=== PATIENT | male | born 1935 | race Caucasian/White ===

== ENCOUNTER 2017-12-08 12:11 | Emergency (ER) | payer MEDICARE, OTHER ==
[~2017-12-08] VITALS: Ht 170.2 cm; Wt 68.0 kg
[2017-12-08] MEDS ORDERED: SODI1TAB3 PO (13:00)
[2017-12-08] MEDS ORDERED: CHOL100044 PO (13:00)
[2017-12-08] MEDS ORDERED: ALPR0.255 PO (13:00)
[2017-12-08] MEDS ORDERED: CARB15DR2 EACHEYE (13:00)
[2017-12-08] MEDS ORDERED: ASPI-992 PO (13:00)
[2017-12-08] MEDS ORDERED: TRAM50TA2 PO (13:00)
[2017-12-08] MEDS ORDERED: ATOR40TA PO (13:00)
[2017-12-08] MEDS ORDERED: RANI150T8 PO (13:00)
[2017-12-08] MEDS ORDERED: TAMS-12 PO (13:00)
[2017-12-08] MEDS ORDERED: DULO30CA2 PO (13:00)
[2017-12-08] MEDS ORDERED: AMLO5TAB7 PO (13:00)
[2017-12-08] MEDS ORDERED: ERGO500014 PO (13:00)
[2017-12-08] MEDS ORDERED: MULT-1168 PO (13:00)
[2017-12-08] MEDS ORDERED: IV NS 0.9% 500 ML BAG IV ONE (13:00)
[2017-12-08] MEDS ORDERED: CALC-494 PO (13:00)
[2017-12-08] MEDS ORDERED: FLUT16SP NS (13:00)
[2017-12-08 13:04] LABS: HEMATOCRIT 31 % (39-51); HEMOGLOBIN 10.1 g/dL (13.5-17.5); MEAN CORPUSCULAR HGB CONC 33 g/dl (31.0-36.0); MEAN CORPUSCULAR VOLUME 76 fL (80-96); PLATELET COUNT (AUTO) 227 /CMM (150-450); RDW COEFFICIENT OF VARIATION 19.3 (11.5-15.0); RED BLOOD CELL COUNT(AUTO) 4.04 MIL/uL (4.5-6.0); WHITE BLOOD COUNT (AUTO) 9.3 K/uL (4.3-11.0)
[2017-12-08 13:11] LABS: CALCIUM, SERUM 8.4 mg/dL (8.5-10.1); CARBON DIOXIDE 28 mmol/L (21-32); CHLORIDE 94 mmol/L (98-107); CREATININE 0.7 mg/dL (0.6-1.3); GLUCOSE 95 mg/dL (74-106); SODIUM SERUM 127 mmol/L (136-145); UREA NITROGEN, BLOOD 24 mg/dL (7-18)
[2017-12-08 13:13] LABS: INR 1.24 (0.85-1.15)
[2017-12-08 13:16] LABS: TROPONIN I < 0.017 ng/mL (0.00-0.056)
[2017-12-08 13:54] LABS: EOSINOPHILS % (MANUAL) 4 % (0-4); LYMPHOCYTES % (MANUAL) 1 % (16-48); MONOCYTES % (MANUAL) 4 % (0-11.0); NEUTROPHILS % (MANUAL) 91 (42-76)
--- NOTE | 2017-12-08 13:59 | NUR ---
Patient discharged to home in stable condition. Written and verbal after care instructions given. Patient verbalizes understanding of instruction.
[2017-12-08 14:00] VITALS: BP 110/66
[2017-12-08 15:09] LABS: ALANINE AMINOTRANSFERASE 38 U/L (12-78); ALKALINE PHOSPHATASE 104 U/L (46-116); ASPARTATE AMINOTRANSFERASE 48 U/L (15-37); BILIRUBIN,DIRECT 0.2 mg/dL (0.0-0.2); BILIRUBIN,TOTAL 0.6 mg/dL (0.2-1.0); TOTAL PROTEIN, SERUM 6.6 g/dL (6.4-8.2)
== END 2017-12-08 14:00 ==
LOC: ER 12:13
DX: E87.1 Hypo-osmolality and hyponatremia (principal); F03.90 Unspecified dementia, unspecified severity, without behavioral disturbance, psychotic disturbance, mood disturbance, and anxiety; F32.9 Major depressive disorder, single episode, unspecified; I10 Essential (primary) hypertension; Z79.82 Long term (current) use of aspirin
CPT/HCPCS: 36415; 80048; 80076; 84484; 85025; 85730; 87081; 93005; 99285; A4606; J7040; Z7610

== ENCOUNTER 2018-01-02 13:27 | Inpatient (IN) | payer MEDICARE, OTHER ==
[~2018-01-02] VITALS: Ht 167.6 cm; Wt 61.7 kg
[2018-01-02] VITALS (7 sets, daily range): BP systolic 98–139; BP diastolic 58–95
[~2018-01-02 13:27] MED LIST: ALPR0.255 PO; AMLO5TAB7 PO; ASPI-992 PO; ATOR40TA PO; CALC-494 PO; CARB15DR2 EACHEYE; CHOL100044 PO; DULO30CA2 PO; ERGO500014 PO; FLUT16SP NS; MULT-1168 PO; RANI150T8 PO; SODI1TAB3 PO; TAMS-12 PO; TRAM50TA2 PO
--- NOTE | 2018-01-02 13:40 | NUR ---
PT PRESENTS TO ER C/O BRIGHT RED RECTAL BLEEDING, FACILITY STAFF DOES NOT KNOW WHAT DAY IT STARTED, AND FREQUENT NOSEBLEEDS X3 DAYS. NO ACTIVE NOSEBLEED CURRENTLY. ORAL MUCOSA MOIST AND PINK, NO BLEEDING. SKIN WARM DRY. RESP EVEN UNLABORED. NOTED STRONG ODOR OF BLOOD UPON ARRIVAL, AND FOUND BRIGHT RED BLOOD ON PANTS. DENIES PAIN.
[2018-01-02 14:18] LABS: BASOPHILS # (AUTO) 0.1 /CMM (0.0-0.2); BASOPHILS % (AUTO) 0.5 % (0.0-2.0); EOSINOPHILS % (AUTO) 0.1 % (0.0-6.0); LYMPHOCYTES # (AUTO) 1.2 /CMM (0.8-4.8); LYMPHOCYTES % (AUTO) 11.4 % (20.0-44.0); MEAN CORPUSCULAR HGB CONC 34 g/dl (31.0-36.0); MEAN CORPUSCULAR VOLUME 76 fL (80-96); MONOCYTES # (AUTO) 0.7 /CMM (0.1-1.30); MONOCYTES % (AUTO) 7.2 % (2.0-12.0); NEUTROPHILS # (AUTO) 8.1 /CMM (1.8-8.9); NEUTROPHILS % (AUTO) 80.8 % (43.0-81.0); PLATELET COUNT (AUTO) 230 /CMM (150-450); RDW COEFFICIENT OF VARIATION 18.8 (11.5-15.0); RED BLOOD CELL COUNT(AUTO) 2.61 MIL/uL (4.5-6.0); WHITE BLOOD COUNT (AUTO) 10.1 K/uL (4.3-11.0)
[2018-01-02 14:28] LABS: HEMATOCRIT 20 % (39-51); HEMOGLOBIN 6.8 g/dL (13.5-17.5)
[2018-01-02 14:29] LABS: CARBON DIOXIDE 23 mmol/L (21-32); CHLORIDE 102 mmol/L (98-107); CREATININE 1.1 mg/dL (0.6-1.3); GLUCOSE 125 mg/dL (74-106); SODIUM SERUM 134 mmol/L (136-145); UREA NITROGEN, BLOOD 45 mg/dL (7-18)
[2018-01-02 14:33] LABS: INR 1.18 (0.85-1.15)
[2018-01-02 14:35] LABS: ALANINE AMINOTRANSFERASE 17 U/L (12-78); ALBUMIN 2.6 g/dL (3.4-5.0); ALKALINE PHOSPHATASE 69 U/L (46-116); ASPARTATE AMINOTRANSFERASE 21 U/L (15-37); BILIRUBIN,DIRECT 0.1 mg/dL (0.0-0.2); BILIRUBIN,TOTAL 0.4 mg/dL (0.2-1.0); TOTAL PROTEIN, SERUM 5.9 g/dL (6.4-8.2)
[2018-01-02] MEDS ORDERED: HALOPERIDOL 1 MG TABLET ONE (14:48)
--- NOTE | 2018-01-02 14:52 | NUR ---
PT BECOMING INCREASINGLY AGITATED AND SELF-REPORTS HAVING ANXIETY. PT AND FAMILY ASKING FOR ANTI-ANXIETY MEDICATION. DR GUEVARA NOTIFIED; ORDER FOR HALDOL PO RECEIVED AND ADMINISTERED
[2018-01-02] MEDS ORDERED: HALOPERIDOL 1 MG TABLET PO ONE (15:00)
[2018-01-02] MEDS ORDERED: IOHEXOL-350 100 ML VIAL IV ONE (15:23)
[2018-01-02] MEDS ORDERED: IV NS 0.9% 500 ML IV ONE ×2 (15:23→15:30)
[2018-01-02] MEDS ORDERED: CT SWABBABLE VALVE TRANS SET 1 EA INFUS.SET MC ONE (15:23)
[2018-01-02 15:30] LABS: LYMPHOCYTES % (MANUAL) 14 % (16-48); MONOCYTES % (MANUAL) 4 % (0-11.0); NEUTROPHILS % (MANUAL) 82 (42-76)
[2018-01-02] MEDS ORDERED: MIDAZOLAM HCL 2 MG/2ML VIAL ONE (15:41)
--- NOTE | 2018-01-02 15:58 | NUR ---
CT TECHS WERE UNABLE TO OBTAIN CT D/T MOVEMENT DESPITE ATTEMPTS AT EDUCATION. DR GUEVARA NOTIFIED. I ACCOMPANIED PT TO CT WITH PT MONITORED AND ADMNIISTERED 2MG VERSED PER ORDER FOR SEDATION. PT TOLERATED WELL AND RETURNED IN STABLE CONDITION TO BED 10
[2018-01-02] MEDS ORDERED: MIDAZOLAM HCL 2 MG/2ML VIAL IV ONE (16:00)
--- NOTE | 2018-01-02 16:58 | NUR ---
REPORT GIVEN TO DAVID LAM FOR ADMISSION TO 109
--- NOTE | 2018-01-02 17:17 | NUR ---
CALLED AKIL [phone] WILL BE READ SOON
--- NOTE | 2018-01-02 17:20 | NUR ---
1 UNIT PRBC INITIATED AT THIS TIME. VSS. SIGHED CONSENT IN CHART. NAD NOTED. WITH FAMILY AND CAREGIVER AT BEDSIDE. 2 RN CHECK VERIFIED WITH TEJAL LAM.
--- NOTE | 2018-01-02 17:53 | NUR ---
VSS. TOLERATING PRBC. REPORTS MILD NAUSEA BUT NO VOMITING. WILL ENDORSE TO ADMITTING RN. TRANSPORTED TO [facility] IN GUARDED CONDITION VIA ACLS PROTOCOL
[2018-01-02] MEDS ORDERED: MAGNESIUM HYDROXIDE 30 ML UDC PO PRN (18:00)
[2018-01-02] MEDS ORDERED: PANTOPRAZOLE 40 MG VIAL IV SCH (18:00)
[2018-01-02] MEDS ORDERED: ACETAMINOPHEN 325 MG TABLET PO PRN (18:00)
[2018-01-02] MEDS ORDERED: Z GUARD REMEDY 2 OZ OINT TP PRN (18:00)
[2018-01-02] MEDS ORDERED: MAG HYDROX/AL HYDROX/SIMETH 30 ML UDC PO PRN (18:00)
[2018-01-02] MEDS: ONDANSETRON HCL/PF 4 MG/2 ML VIAL IVP PRN (18:16)
[2018-01-02] MEDS ORDERED: PANTOPRAZOLE 40 MG VIAL IV ONE (18:30)
[2018-01-02] MEDS: LORAZEPAM INJ 2 MG/ML VIAL IV PRN (18:43)
--- NOTE | 2018-01-02 19:10 | NUR ---
RN [facility] NOTE RECEIVED PATIENT RESTING IN BED AOX1-2, EASILY AROUSABLE, 1 UNIT PRBC TRANSFUSING, NO S/SX OF RESPIRATORY DISTRESS OR REACTION. PATIENT IS ON RA, NO CARDIAC DISTRESS NOTED, NO NAUSEA OR VOMITING NOTED, VSS, SAFETY MAINTAINED AT ALL TIMES, BED IN LOW LOCKED POSITION, CALL LIGHT WITHIN REACH, WILL CONTINUE TO MONITOR FOR ANY CHANGES IN CONDITION.
--- NOTE | 2018-01-02 20:20 | NUR ---
RN [facility] NOTE PATIENT COMPLETED TRANSFUSION, TOLERATED WELL VSS, 126/73, HR 93, 97% RA, AOX1, ABLE TO COMMUNICATE NEEDS, WILL CONTINUE TO MONITOR FOR ANY CHANGES IN CONDITION.
[2018-01-02] MEDS: IV NS 0.9% 1,000 ML IV PRN (20:50)
[2018-01-02] MEDS ORDERED: DEXTROSE 50%-WATER 50 ML DISP.SYRIN IV PRN (21:30)
[2018-01-02] MEDS ORDERED: INSULIN REGULAR, HUMAN 100 UNIT/ML 3 ML VIAL SQ PRN (21:30)
[2018-01-02] MEDS: BLOOD SUGAR DIAGNOSTIC 1 EACH STRIP IN SCH (22:26)
[2018-01-03] VITALS (14 sets, daily range): BP systolic 109–146; BP diastolic 67–89
[2018-01-03 00:29] LABS: HEMOGLOBIN 6.8 g/dL (13.5-17.5)
--- NOTE | 2018-01-03 00:58 | NUR ---
0005 patient with bloody stool. Hgb on admission was 6.8, was transfused 1 unit PRBC. STAT H/H done 27 Bing Richards from lab called for hemoglobin 6.8 ; Dr. Davis Fox in the unit; made aware of the results and bloody stool; also informed patient confused and gets out of bed without calling; transferred closer to the station; with verbal orders noted and carried out
[2018-01-03] MEDS: ONDANSETRON HCL/PF 4 MG/2 ML VIAL IVP PRN ×2 (01:01→20:33)
[2018-01-03] MEDS: FUROSEMIDE 20 MG/2 ML VIAL IV PRN ×2 (04:22→07:08)
[2018-01-03] MEDS: LORAZEPAM INJ 2 MG/ML VIAL IV PRN ×3 (04:22→17:42)
--- NOTE | 2018-01-03 07:00 | NUR ---
RN NOTES RECEIVED PT ON BED, A/Ox1, ON RA , RESPIRATION EVEN AND UNLABORED, NO SOB NOTED, ON TELE SR WITH BBB, HR IN 90'S , PT IS NPO , L FA IV SITE G 18 SITE CDI, WITH NS AT 75CC/HR RUNNING , SR UP x3, CALL LIGHT WITHIN EASY REACH, BED LOCKED AND IN LOWEST POSITION , CONTINUE TO MONITOR .
[2018-01-03] MEDS: BLOOD SUGAR DIAGNOSTIC 1 EACH STRIP IN SCH ×4 (07:30→21:11)
[2018-01-03 08:25] LABS: BASOPHILS % (AUTO) 0.2 % (0.0-2.0); EOSINOPHILS % (AUTO) 0.1 % (0.0-6.0); HEMATOCRIT 30 % (39-51); HEMOGLOBIN 9.9 g/dL (13.5-17.5); LYMPHOCYTES # (AUTO) 1.5 /CMM (0.8-4.8); LYMPHOCYTES % (AUTO) 12.2 % (20.0-44.0); MEAN CORPUSCULAR HGB CONC 33 g/dl (31.0-36.0); MEAN CORPUSCULAR VOLUME 79 fL (80-96); MONOCYTES # (AUTO) 1.2 /CMM (0.1-1.30); MONOCYTES % (AUTO) 9.1 % (2.0-12.0); NEUTROPHILS # (AUTO) 9.9 /CMM (1.8-8.9); NEUTROPHILS % (AUTO) 78.4 % (43.0-81.0); PLATELET COUNT (AUTO) 202 /CMM (150-450); RDW COEFFICIENT OF VARIATION 18.6 (11.5-15.0); RED BLOOD CELL COUNT(AUTO) 3.79 MIL/uL (4.5-6.0); WHITE BLOOD COUNT (AUTO) 12.6 K/uL (4.3-11.0)
[2018-01-03 08:32] LABS: CALCIUM, SERUM 8.4 mg/dL (8.5-10.1); CARBON DIOXIDE 25 mmol/L (21-32); CHLORIDE 103 mmol/L (98-107); CREATININE 0.9 mg/dL (0.6-1.3); GLUCOSE 138 mg/dL (74-106); PHOSPHORUS 3.9 mg/dL (2.5-4.9); POTASSIUM 3.6 mmol/L (3.5-5.1); SODIUM SERUM 135 mmol/L (136-145); UREA NITROGEN, BLOOD 37 mg/dL (7-18)
[2018-01-03 08:33] LABS: INR 1.1 (0.87-1.13)
[2018-01-03 08:43] LABS: CHOLESTEROL 146 mg/dL (<200); HDL CHOLESTEROL 43 mg/dL (40-60); LDL 88 mg/dL (0-99); THYROID STIMULATING HORMONE 1.624 uIU/mL (0.358-3.74); TRIGLYCERIDES 86 mg/dL (30-150)
[2018-01-03] MEDS: PANTOPRAZOLE 40 MG VIAL IV SCH ×2 (08:54→17:08)
[2018-01-03 09:12] LABS: IRON, SERUM 80 ug/dl (50-175); TOTAL IRON BINDING CAPACITY 278 ug/dl (250-450)
--- NOTE | 2018-01-03 15:45 | NUR ---
RN NOTES PT TO OR FOR EGD AT THIS TIME ,
--- NOTE | 2018-01-03 17:00 | NUR ---
RN NOTES PT BACK FROM OR ,S/P EGD, VSS STABLE , CONTINUE TO MONITOR
[2018-01-03] MEDS: SUCRALFATE 1 G/10 ML UDC PO SCH ×2 (17:10→21:11)
[2018-01-03] MEDS: IV NS 0.9% 1,000 ML IV PRN (18:03)
--- NOTE | 2018-01-03 18:53 | NUR ---
RN NOTES PT ALERT STILL CONFUSED AND WANTS TO GET OUT OF BED, SITTER AT THE BEDSIDE FOR SAFETY PRECAUTION , R UPPER ARM MIDLINE CDI, 3 MODERATE AMOUNT OF BLOODY STOOL NOTED ON THIS SHIFT , VSS STABLE, SR UP x3, CALL LIGHT WITHIN EASY REACH, WILL ENDOSE TO RADIAGRAPH OPERATOR NURSE FOR TONIO
--- NOTE | 2018-01-03 19:20 | NUR ---
RN [facility] NOTE RECEIVED PATIENT RESTING IN BED AOX1-2, SITTER AT BEDSIDE DUE TO RESTLESSNESS, ON TELE SR 90, NO S/SX OF RESPIRATORY OR CARDIAC DISTRESS. F/C DRAINING TO GRAVITY, DIAPER IN PLACE, PATIENT CONTINUES TO HAVE LOOSE BLOODY STOOL. LEFT THUMB AMPUTATION. R WRIST #24 IV PATENT, SITE CDI, SL, JUAQUIN MIDLINE PATENT FLUSHING WELL WITH NS AT 75 ML/HR. SKIN KEPT CLEAN AND DRY. SAFETY MAINTAINED AT ALL TIMES, BED IN LOW LOCKED POSITION, CALL LIGHT WITHIN REACH, WILL CONTINUE TO MONITOR FOR ANY CHANGES IN CONDITION.
[2018-01-03] MEDS: ZOLPIDEM TARTRATE 5 MG TABLET PO PRN (21:11)
[2018-01-04] VITALS: BP 116/70
[2018-01-04] MEDS: LORAZEPAM INJ 2 MG/ML VIAL IV PRN ×2 (03:11→11:15)
[2018-01-04 04:00] VITALS: BP 147/87
--- NOTE | 2018-01-04 07:00 | NUR ---
RN NOTES RECEIVED PT ON BED, A/Ox1, CONFUSED , SITTER AT THE BEDSIDE FOR SAFETY PRECAUTION , ON RA , RESPIRATION EVEN AND UNLABORED, NO SOB NOTED, ON TELE SR HR IN 70'S , HART DRINING TO GRAVITY WITH YELLOW CLEAR URINE, R UPPER ARM MIDLINE CDI, WITH IV NS AT 75CC/HR RUNNING , R WRIST IV SITE G 24 CDI, SR UP x3, CALL LIGHT WITHIN EASY REACH, BED LOCKED AND IN LOWEST POSITION , CONTINUE TO MONITOR .
[2018-01-04] MEDS: IV NS 0.9% 1,000 ML IV PRN (07:13)
[2018-01-04] MEDS: BLOOD SUGAR DIAGNOSTIC 1 EACH STRIP IN SCH (07:30)
[2018-01-04] MEDS: SUCRALFATE 1 G/10 ML UDC PO SCH ×4 (07:51→21:50)
[2018-01-04 08:00] VITALS: BP 125/72
[2018-01-04] MEDS: PANTOPRAZOLE 40 MG VIAL IV SCH ×2 (08:14→16:44)
[2018-01-04 12:00] VITALS: BP 118/58
[2018-01-04 13:11] LABS: BASOPHILS % (AUTO) 0.3 % (0.0-2.0); EOSINOPHILS % (AUTO) 0.6 % (0.0-6.0); HEMATOCRIT 25 % (39-51); HEMOGLOBIN 8.3 g/dL (13.5-17.5); LYMPHOCYTES # (AUTO) 1.2 /CMM (0.8-4.8); LYMPHOCYTES % (AUTO) 11.4 % (20.0-44.0); MEAN CORPUSCULAR HGB CONC 33 g/dl (31.0-36.0); MEAN CORPUSCULAR VOLUME 79 fL (80-96); MONOCYTES # (AUTO) 1.1 /CMM (0.1-1.30); MONOCYTES % (AUTO) 10.7 % (2.0-12.0); PLATELET COUNT (AUTO) 155 /CMM (150-450); RDW COEFFICIENT OF VARIATION 18.8 (11.5-15.0); RED BLOOD CELL COUNT(AUTO) 3.15 MIL/uL (4.5-6.0); WHITE BLOOD COUNT (AUTO) 10.4 K/uL (4.3-11.0)
[2018-01-04 13:29] LABS: CARBON DIOXIDE 26 mmol/L (21-32); CHLORIDE 105 mmol/L (98-107); CREATININE 0.6 mg/dL (0.6-1.3); GLUCOSE 108 mg/dL (74-106); POTASSIUM 2.9 mmol/L (3.5-5.1); SODIUM SERUM 137 mmol/L (136-145); UREA NITROGEN, BLOOD 19 mg/dL (7-18)
--- NOTE | 2018-01-04 13:33 | NUR ---
RN NOTES NICHOLAS MARTINEZ NP NOTIFED REGARDING K=2.9.
[2018-01-04] MEDS: POTASSIUM CL. PREMIX PERIPHER. 50 ML IV SCH ×4 (13:53→17:26)
[2018-01-04] MEDS: HYDROCODONE/APAP 5/325MG 1 EACH TABLET PO PRN (15:57)
[2018-01-04 16:00] VITALS: BP 144/75
--- NOTE | 2018-01-04 18:00 | NUR ---
RN NOTES PT REMAINS CONFUSED, WANTS TO GET OUT OF THE BED, SITTER AT THE BEDSIDE FOR SAFETY.NS AT 75CC/HR RUNNING VIA R UPPER ARM MIDLINE , HART DRAINING TO GRAVITY , SR UP x3, CALL LIGHT WITHIN EASY REACH, WILL ENDOSE TO COMMUNICATION TECHNICIAN NURSE FOR TONIO .
--- NOTE | 2018-01-04 19:26 | NUR ---
RN [facility] NOTE RECEIVED PATIENT RESTING IN BED AOX1-2, SITTER AT BEDSIDE DUE TO RESTLESSNESS, ON TELE SR 80, NO S/SX OF RESPIRATORY OR CARDIAC DISTRESS. F/C DRAINING TO GRAVITY, DIAPER IN PLACE. LEFT THUMB AMPUTATION. R WRIST #24 IV PATENT, SITE CDI, SL, JUAQUIN MIDLINE PATENT FLUSHING WELL WITH NS AT 75 ML/HR. SKIN KEPT CLEAN AND DRY. SAFETY MAINTAINED AT ALL TIMES, BED IN LOW LOCKED POSITION, CALL LIGHT WITHIN REACH, WILL CONTINUE TO MONITOR FOR ANY CHANGES IN CONDITION.
[2018-01-04 20:00] VITALS: BP 129/72
[2018-01-04] MEDS ORDERED: DEXTROSE 50%-WATER 50 ML DISP.SYRIN IV PRN (22:00)
[2018-01-04] MEDS ORDERED: INSULIN REGULAR, HUMAN 100 UNIT/ML 3 ML VIAL SQ PRN (22:00)
[2018-01-04] MEDS ORDERED: BLOOD SUGAR DIAGNOSTIC 1 EACH STRIP IN SCH (22:00)
[2018-01-05] VITALS (7 sets, daily range): BP systolic 110–158; BP diastolic 67–89
[2018-01-05] MEDS: IV NS 0.9% 1,000 ML IV PRN ×2 (00:41→14:35)
[2018-01-05] MEDS: HYDROCODONE/APAP 5/325MG 1 EACH TABLET PO PRN (01:00)
[2018-01-05] MEDS: LORAZEPAM INJ 2 MG/ML VIAL IV PRN ×3 (02:06→23:04)
--- NOTE | 2018-01-05 06:41 | NUR ---
RN [facility] CLOSING NOTE ENDORSED PT SLEEPING IN BED AOX1-2, SITTER AT BEDSIDE DUE TO RESTLESSNESS, ON TELE SR 80, NO S/SX OF RESPIRATORY OR CARDIAC DISTRESS. F/C DRAINING TO GRAVITY, DIAPER IN PLACE. LEFT THUMB AMPUTATION. R WRIST #24 IV PATENT, SITE CDI, SL, JUAQUIN MIDLINE PATENT FLUSHING WELL WITH NS AT 75 ML/HR. SKIN KEPT CLEAN AND DRY. SAFETY MAINTAINED AT ALL TIMES, BED IN LOW LOCKED POSITION, CALL LIGHT WITHIN REACH, WILL CONTINUE TO MONITOR FOR ANY CHANGES IN CONDITION.
[2018-01-05 06:44] LABS: CALCIUM, SERUM 7.7 mg/dL (8.5-10.1); CARBON DIOXIDE 25 mmol/L (21-32); CHLORIDE 100 mmol/L (98-107); CREATININE 0.7 mg/dL (0.6-1.3); GLUCOSE 94 mg/dL (74-106); POTASSIUM 3.1 mmol/L (3.5-5.1); SODIUM SERUM 134 mmol/L (136-145); UREA NITROGEN, BLOOD 16 mg/dL (7-18)
--- NOTE | 2018-01-05 08:00 | NUR ---
TD/RN AM SHIFT INITIAL NOTES RECEIVED PT AWAKE SITTING IN BED WITH SITTER AT BEDSIDE. NO ACUTE CHANGE OF CONDITION NOTED. PT A/O X 1, CONFUSED, ON ROOM AIR, SATURATING @ 95%, LUNG SOUND CLEAR. ON TELE WITH SINUS RHYTHM, HR 84. WITH ON GOING IV INFUSION OF NS @ 75CC/HR, IV SITES PATENT WITH NO S/S OF INFECTION. HART CATHETER INTACT, WITH CLEAR YELLOW URINE OUTPUT. PT IS COMFORTABLE AT THIS TIME. SCHEDULED AM MEDS TO BE GIVEN. CL WITHIN REACHED AND SAFETY MAINTAINED.
[2018-01-05] MEDS: SUCRALFATE 1 G/10 ML UDC PO SCH ×5 (08:32→22:59)
[2018-01-05] MEDS: PANTOPRAZOLE 40 MG VIAL IV SCH ×2 (08:32→17:51)
--- NOTE | 2018-01-05 10:56 | NUR ---
TD/RN SPEECH THERAPIST PT SEEN & EXAMINED BY SPEECH THERAPIST. D/T POOR APPETITE AND CONFUSION RECOMMENDS SUPPLEMENT DRINK WITH MEALS. NOTED, WILL MAKE PRIMARY MD AWARE. MONITORING.
[2018-01-05] MEDS: POTASSIUM CHLORIDE 20 MEQ TAB.PRT.SR PO SCH ×2 (11:53→13:04)
[2018-01-05] MEDS: ENSURE ENLIVE 237 ML LIQUID (VANILLA) PO SCH ×2 (12:07→17:50)
--- NOTE | 2018-01-05 12:09 | NUR ---
TD/RN NOON ROUNDS SITTER AT BEDSIDE. PT VERY COMBATIVE, KICKING AND YELLING. PRN ATIVAN GIVEN FOR ANXIETY. MONITORING.
--- NOTE | 2018-01-05 14:25 | NUR ---
ICU/RN ROUNDS - MICHELLE,. CERAMICS TEACHER UPDATED PT'S CONDITION. NOTIFIED CERAMICS TEACHER THAT PT IS VERY COMBATIVE AND RESTLESS, GAVE ATIVAN BUT PT DID NOT CALM DOWN. NO NEW ORDERS RECEIVED AT THIS TIME. MONITORING CONTINUED.
[2018-01-05] MEDS: HALOPERIDOL LACTATE INJ 5 MG/ML VIAL IM PRN ×2 (14:35→20:11)
[2018-01-05 15:00] LABS: BASOPHILS % (AUTO) 0.3 % (0.0-2.0); EOSINOPHILS % (AUTO) 0.6 % (0.0-6.0); HEMATOCRIT 29 % (39-51); HEMOGLOBIN 9.9 g/dL (13.5-17.5); LYMPHOCYTES % (AUTO) 13.9 % (20.0-44.0); MEAN CORPUSCULAR HGB CONC 34 g/dl (31.0-36.0); MEAN CORPUSCULAR VOLUME 80 fL (80-96); MONOCYTES # (AUTO) 1.3 /CMM (0.1-1.30); MONOCYTES % (AUTO) 9.4 % (2.0-12.0); NEUTROPHILS # (AUTO) 10.6 /CMM (1.8-8.9); NEUTROPHILS % (AUTO) 75.8 % (43.0-81.0); PLATELET COUNT (AUTO) 213 /CMM (150-450); RDW COEFFICIENT OF VARIATION 18.5 (11.5-15.0); RED BLOOD CELL COUNT(AUTO) 3.67 MIL/uL (4.5-6.0); WHITE BLOOD COUNT (AUTO) 14.1 K/uL (4.3-11.0)
[2018-01-05 16:10] LABS: INR 1.14 (0.87-1.13)
[2018-01-05] MEDS: CEFTRIAXONE 1 G in IV NS 0.9% 50 ML IV SCH (17:49)
[2018-01-05 19:00] LABS: APPEARANCE,URINE SL CLOUDY (CLEAR); BILIRUBIN,URINE NEGATIVE (NEGATIVE); BLOOD, URINE 3+ Ery/uL (NEGATIVE); COLOR,URINE YELLOW (YELLOW); KETONES,URINE 1+ (NEGATIVE); LEUKOCYTE ESTERASE ,URINE TRACE (NEGATIVE); NITRITE, URINE NEGATIVE (NEGATIVE); PH,URINE 6.5 (5.0-8.0); PROTEIN,URINE 3+ mg/dl (NEGATIVE); UGLUCOSE NEGATIVE (NEGATIVE); UROBILINOGEN,URINE 0.2 EU/dL (0.2)
[2018-01-05 19:20] LABS: BACTERIA,URINE Few /HPF (None Seen); RBC,URINE TOO NUMEROUS TO COUN /HPF (0-2); SQUAMOUS EPITHELIAL CELL,UR Few /HPF (None Seen)
--- NOTE | 2018-01-05 19:40 | NUR ---
RN INITIAL NOTES: RECEIVED REPORT FROM ELMER LAM, PT IN BED, AWAKE CONFUSED TRYING TO GET OUT BED, 1:1 SITTER AT BED SIDE, IV ACCESS COVERED WITH KERLIX FOR PROTECTION, PT ALSO HAS JUAQUIN MIDLINE PATENT AND FLUSHING WELL, INFUSING WITH NS AT 75ML/HR. PT ON SINUS TACHYCARDIA HR 111. VS TAKEN AND RECORDED. SAFETY PRECAUTIONS FOR FALL INITIATE, CALL LIGHT IN REACH, WILL CONTINUE MONITORING PT
--- NOTE | 2018-01-05 19:41 | NUR ---
TELE1/RN AM SHIFT END NOTES ALL NEEDS MET. NO ACUTE CHANGE OF CONDITION NOTED DURING THE SHIFT, SITTER AT BEDSIDE. PT ENDORSED TO PM NURSE TO CONTINUE CARE. CL WITHIN REACHED AND SAFETY MAINTAINED.
--- NOTE | 2018-01-05 20:00 | NUR ---
RN NOTES: NOTED PT'S BILATERAL WRIST, FOREARM WITH BRUISES, REDNESS UNKNOWN ETIOLOGY SINCE THERE'S NO PHOTOS TAKEN IN THE CHART, BILATERAL RADIAL PULSES PATENT AND PALPABLE, PT ABLE TO MOVE AND WIGGLE ARMS, TOOK PICTURES AND ATTACHED TO CHART
--- NOTE | 2018-01-05 20:12 | NUR ---
PRN HALDOL: PT COMBATIVE, AGGRESSIVE TRYING TO HIT STAFF, VS TAKEN AND RECORDED, PT ON TELE MONITORING SINUS TACH HR 111, BP 147/89 HR 100 RR20 SPO2 98% ON RA, PRN HALDOL 0.2ML IM ADMINISTERED AT THIS TIME.
--- NOTE | 2018-01-05 23:06 | NUR ---
PRN ATIVAN: PT IS AGITATED, AGGRESSIVE AND COMBATIVE AGAIN, PRN ATIVAN 0.5ML ADMINISTERED AT THIS TIME, VS TAKEN AND RECORDED,
[2018-01-05] MEDS: ZOLPIDEM TARTRATE 5 MG TABLET PO PRN (23:40)
--- NOTE | 2018-01-05 23:42 | NUR ---
PRN ATIVAN: CHECKED PT'S VS, PER CLINICAL ASSESSMENT/NURSING JUDGMENT PT NEEDS MEDICATION TO CALM HIM DOWN, HALDOL IM ADMINISTERED, ATIVAN IV GIVEN, BUT STILL STRONG, AGGRESSIVE, PT KEPT YELLING, SHOUTING SCREAMING THAT HE CANT SLEEP BECAUSE HE WANTS HIS OWN HOME BED, PT IS CONFUSED, POSSIBLY THIS PT NEEDS ENOUGH REST AND SLEEP TO AT LEAST HELP HIM BECOME BETTER, NEEDS TO ENCOURAGE PT TO EAT TO INCREASE PO INTAKE, NEEDS TO BEEN BY PSYCHIATRIST POSSIBLE DEPRESSION/PSYCHOSIS?
[2018-01-06] VITALS (7 sets, daily range): BP systolic 118–149; BP diastolic 72–98
--- NOTE | 2018-01-06 | NUR ---
RN NOTES: CONTACTED DR SPENCE REGARDING PT'S BEHAVIOR, DESPITE GIVING ALL PRN MEDS TO HELP CALM THE PT DOWN, PT STILL AGGRESSIVE, COMBATIVE, TRIED HITTING STAFF, SPITTING, TRYING TO REMOVE IV ACCESS AND GET OUT OF BED DESPITE HAVING SITTER, PT REALLY STRONG, DIFFICULT TO CONTROL. PER MD PLACED PT ON BILATERAL SOFT WRIST RESTRAINT, OKAY TO STILL HAVE THE SITTER. RELAYED TO LANDSCAPE MANAGEMENT TECHNICIAN TARIQ. RESTRAINT INITIATED, RESTRAINT PROTOCOL PERFORMED
--- NOTE | 2018-01-06 04:05 | NUR ---
RN NOTES: PT SLEEPING AT THIS TIME, RESPIRATION EVEN AND UNLABORED, BILATERAL SOFT WRIST RESTRAINT RELEASED AT THIS TIME,WILL CONTINUE TO MONITOR FOR THE NEED FOR USE OF RESTRAINT
[2018-01-06] MEDS: IV NS 0.9% 1,000 ML IV PRN ×2 (04:06→17:09)
--- NOTE | 2018-01-06 06:41 | NUR ---
RN NOTES: PERFORMED BLADDER SCAN, RESULT SHOWS 121ML OF URINE. NO ABDOMINAL DISTENTION NOTED, PT VOIDED USING DIAPER, WILL CONTINUE MONITORING
--- NOTE | 2018-01-06 06:59 | NUR ---
RN CLOSING NOTES: PT IN BED, REMAINS CONFUSED, BILATERAL SOFT WRIST RESTRAINT REMAINS IN PLACED, RADIAL PULSES PALPABLE, INTACT, PT ABLE TO MOVE AND WIGGLE ARMS, NO S/S OF IMPEDIMENT IN CIRCULATION NOTED. VS REMAINS STABLE, REMAINS SINUS TACHY HR 106. FOR PSYCHE CONSULT TODAY, SAFETY PRECAUTIONS FOR FALL REMAINS ENGAGED, CALL LIGHT IN REACH, WILL ENDORSE TO DAY RN FOR TONIO.
[2018-01-06 07:15] LABS: CALCIUM, SERUM 8.4 mg/dL (8.5-10.1); CARBON DIOXIDE 20 mmol/L (21-32); CHLORIDE 99 mmol/L (98-107); CREATININE 0.8 mg/dL (0.6-1.3); GLUCOSE 118 mg/dL (74-106); POTASSIUM 3.1 mmol/L (3.5-5.1); SODIUM SERUM 133 mmol/L (136-145); UREA NITROGEN, BLOOD 12 mg/dL (7-18)
[2018-01-06] MEDS: SUCRALFATE 1 G/10 ML UDC PO SCH ×4 (07:30→21:32)
[2018-01-06] MEDS: ENSURE ENLIVE 237 ML LIQUID (VANILLA) PO SCH ×3 (08:00→17:45)
[2018-01-06] MEDS: PANTOPRAZOLE 40 MG VIAL IV SCH ×2 (09:29→17:20)
[2018-01-06] MEDS: LORAZEPAM INJ 2 MG/ML VIAL IV PRN (10:38)
[2018-01-06] MEDS: HALOPERIDOL LACTATE INJ 5 MG/ML VIAL IM PRN (10:39)
[2018-01-06] MEDS: POTASSIUM CHLORIDE 20 MEQ TAB.PRT.SR PO SCH ×2 (13:01→13:04)
[2018-01-06] MEDS: OLANZAPINE 2.5 MG TABLET PO SCH ×2 (13:01→17:08)
[2018-01-06 14:18] LABS: BASOPHILS # (AUTO) 0.1 /CMM (0.0-0.2); BASOPHILS % (AUTO) 0.7 % (0.0-2.0); EOSINOPHILS % (AUTO) 1.6 % (0.0-6.0); HEMATOCRIT 30 % (39-51); HEMOGLOBIN 10.2 g/dL (13.5-17.5); LYMPHOCYTES # (AUTO) 1.5 /CMM (0.8-4.8); LYMPHOCYTES % (AUTO) 11.6 % (20.0-44.0); MEAN CORPUSCULAR HGB CONC 34 g/dl (31.0-36.0); MEAN CORPUSCULAR VOLUME 82 fL (80-96); MONOCYTES # (AUTO) 1.4 /CMM (0.1-1.30); MONOCYTES % (AUTO) 11.2 % (2.0-12.0); NEUTROPHILS # (AUTO) 9.5 /CMM (1.8-8.9); NEUTROPHILS % (AUTO) 74.9 % (43.0-81.0); PLATELET COUNT (AUTO) 222 /CMM (150-450); RDW COEFFICIENT OF VARIATION 19.3 (11.5-15.0); RED BLOOD CELL COUNT(AUTO) 3.72 MIL/uL (4.5-6.0); WHITE BLOOD COUNT (AUTO) 12.6 K/uL (4.3-11.0)
[2018-01-06] MEDS: CEFTRIAXONE 1 G in IV NS 0.9% 50 ML IV SCH (17:20)
--- NOTE | 2018-01-06 19:44 | NUR ---
TELE LBD TEACHER CLOSING NOTES: PT IN BED, REMAINS CONFUSED, BILATERAL SOFT WRIST RESTRAINT REMAINS IN PLACED, RADIAL PULSES PALPABLE, INTACT, PT ABLE TO MOVE AND WIGGLE ARMS, NO S/S OF IMPEDIMENT IN CIRCULATION NOTED. PATIENT HAD PERIODS OF BLOODY STOOL MD AWARE OTHERWISE VS REMAIN STABLE, REMAINS SINUS TACHY HR 100. PSYCHE CONSULT STILL TO BE PERFORMED, SAFETY PRECAUTIONS FOR FALL REMAINS ENGAGED, CALL LIGHT IN REACH, WILL ENDORSE TO CASH APPLICATIONS ASSOCIATE RN FOR TONIO.
--- NOTE | 2018-01-06 20:00 | NUR ---
TELE PHYSICAL SCIENCE TEACHER INITIAL NOTES RECEIVED REPORT FROM AM NURSE AND SEEN THE PT IN BED. HES' AWAKE BUT NEEDS RE-ORIENTED WHERE HE AT. IVF NS AT 75ML/HR STILL INFUSING ON HIS RIGHT UPPER ARM. PATENT AND INTACT. BREATHING EVEN AND NON-LABORED. NOT IN ANY ACUTE DISTRESS NOTED. PT ALSO IN SOFT WRIST RESTRAIN BECAUSE HE TRIED TO PULL OUT IV AND SOMETIME HITTING THE STAFF. KEPT HIM WARM AND COMFORTABLE AT ALL TIMES. TELE SR PER MONITOR.
[2018-01-07] VITALS (7 sets, daily range): BP systolic 104–122; BP diastolic 62–86
--- NOTE | 2018-01-07 | NUR ---
TELE FARM BUTCHER NOTES PT SLEEPING ON AND OFF AND BUT NO SIGNS OF ANY ACUTE DISTRESS NOTED AT THIS TIME. IVF STILL INFUSING. KEPT HIM WARM AND COMFORTABLE AT ALL TIMES. PLACE CALL LIGHT AT REACH.
[2018-01-07 07:00] LABS: BASOPHILS % (AUTO) 0.2 % (0.0-2.0); EOSINOPHILS % (AUTO) 2.8 % (0.0-6.0); HEMATOCRIT 29 % (39-51); HEMOGLOBIN 9.6 g/dL (13.5-17.5); LYMPHOCYTES # (AUTO) 1.7 /CMM (0.8-4.8); LYMPHOCYTES % (AUTO) 14.1 % (20.0-44.0); MEAN CORPUSCULAR HGB CONC 33 g/dl (31.0-36.0); MEAN CORPUSCULAR VOLUME 81 fL (80-96); MONOCYTES # (AUTO) 1.2 /CMM (0.1-1.30); MONOCYTES % (AUTO) 10.3 % (2.0-12.0); NEUTROPHILS # (AUTO) 8.6 /CMM (1.8-8.9); NEUTROPHILS % (AUTO) 72.6 % (43.0-81.0); PLATELET COUNT (AUTO) 195 /CMM (150-450); RDW COEFFICIENT OF VARIATION 19.2 (11.5-15.0); RED BLOOD CELL COUNT(AUTO) 3.53 MIL/uL (4.5-6.0); WHITE BLOOD COUNT (AUTO) 11.9 K/uL (4.3-11.0)
[2018-01-07 07:16] LABS: ALANINE AMINOTRANSFERASE 18 U/L (12-78); ALBUMIN 2.5 g/dL (3.4-5.0); ALKALINE PHOSPHATASE 81 U/L (46-116); ASPARTATE AMINOTRANSFERASE 33 U/L (15-37); BILIRUBIN,TOTAL 0.5 mg/dL (0.2-1.0); CALCIUM, SERUM 8.3 mg/dL (8.5-10.1); CARBON DIOXIDE 21 mmol/L (21-32); CHLORIDE 106 mmol/L (98-107); CREATININE 0.7 mg/dL (0.6-1.3); GLUCOSE 92 mg/dL (74-106); POTASSIUM 3.1 mmol/L (3.5-5.1); SODIUM SERUM 139 mmol/L (136-145); TOTAL PROTEIN, SERUM 5.8 g/dL (6.4-8.2); UREA NITROGEN, BLOOD 13 mg/dL (7-18)
--- NOTE | 2018-01-07 07:18 | NUR ---
TELE PRINCIPAL SECRETARY CLOSING NOTES PT RESTING AFTER SPONGES BATH DONE WITH THE HELPED OF SOREN.REMEDY Z-GUARD ALSO APPLIED TO HIS BUTTOCKS AREA TO PREVENT AND SKIN BREAKDOWN. STABLE RANDALL THE NIGHT AND ALL DUE MEDS GIVEN. TELE SR PER MONITOR. KEPT HIM WARM AND COMFORTABLE AT ALL TIMES. WILL ENDORSE TO AM NURSE FOR CONTINUITY OF CARE. ENDORSE TO AM NURSE FOR CONTINUITY OF CARE. PLACE CALL LIGHT AT REACH.
[2018-01-07] MEDS: IV NS 0.9% 1,000 ML IV PRN (07:58)
--- NOTE | 2018-01-07 08:00 | NUR ---
TELE1/RN AM SHIFT INITIAL NOTES RECEIVED PT AWAKE IN BED WITH SITTER AT BEDSIDE. PT ALERT BUT CONFUSED, RESTLESS. NO ACUTE CHANGE OF CONDITION OR ACTIVE BLEEDING NOTED. ON ROOM AIR SATURATING @ 96%, LUNG SOUNDS CLEAR. ON TELE WITH SINUS RHYTHM WITH OCCASIONAL PVCs, HR 86. IV SITE WITH ON GOING INFUSION OF NS @ 75CC/HR, PATENT WITH NO S/S OF INFECTION. PT STABLE AT THIS TIME, SCHEDULED AM MEDS TO BE GIVEN. CL WITHIN REACHED AND SAFETY MAINTAINED. ON GOING MONITORING.
[2018-01-07] MEDS: OLANZAPINE 2.5 MG TABLET PO SCH ×3 (09:40→20:28)
[2018-01-07] MEDS: ENSURE ENLIVE 237 ML LIQUID (VANILLA) PO SCH ×3 (09:40→17:33)
[2018-01-07] MEDS: PANTOPRAZOLE 40 MG VIAL IV SCH ×2 (09:40→17:34)
[2018-01-07] MEDS: SUCRALFATE 1 G/10 ML UDC PO SCH ×4 (09:41→21:27)
[2018-01-07] MEDS ORDERED: POTASSIUM CHLORIDE 20 MEQ POWDER PACKET PO SCH ×2 (10:30→12:30)
[2018-01-07] MEDS ORDERED: CARBOXYMETHYLCELLULOSE SODIUM 1 EA TUBE EACHEYE PRN (11:30)
[2018-01-07] MEDS ORDERED: CALCIUM CARBONATE 500 MG TAB.CHEW PO PRN (11:30)
[2018-01-07] MEDS ORDERED: TRAMADOL HCL 50 MG TABLET PO PRN (11:30)
--- NOTE | 2018-01-07 13:45 | NUR ---
TELE1/RN ROUNDS - DR. HARDING UPDATED PT'S CONDITION. PT SEEN & EXAMINED BY DR. HARDING WITH PT'S AT BEDSIDE. PER MD SHE WILL ORDER NEW DOSING FOR ZYPREXA. NO NEW ORDERS RECEIVED AT THIS TIME. MONITORING CONTINUED.
--- NOTE | 2018-01-07 16:30 | NUR ---
TELE1/RN AFTERNOON ROUNDS PM CARE PROVIDED, PT LESS ANXIOUS, RESTLESS, NO NEW ACUTE CHANGE OF CONDITION. MONITORING CONTINUED.
[2018-01-07] MEDS: CEFTRIAXONE 1 G in IV NS 0.9% 50 ML IV SCH (17:34)
--- NOTE | 2018-01-07 20:00 | NUR ---
TELE1/RN AM SHIFT END NOTES ALL NEEDS MET. PT WAS LESS ANXIOUS DURING THE SHIFT. ENDORSED TO PM NURSE TO CONTINUE CARE. BILATERAL WRIST RESTRAINT PLACED, IV SITE PATENT WITH ON GOING INFUSION. CL WITHIN REACHED AND SAFETY MAINTAINED.
--- NOTE | 2018-01-07 20:11 | NUR ---
TELE/RN NOTES PATIENT IN BED, HOB ELEVATED, RESTING COMFORTABLY IN BED, REQUIRE FREQUENT REORIENTATION ST ALL TIMES, MONITORING FOR SAFETY PATIENT DISORIENTED BUT ABLE TO COOPERATE AND REQUIRE RESTRAIN SOFT, RECEIVED REPORT FROM AM RN FOR TONIO.
[2018-01-08] VITALS: BP 90/58
[2018-01-08] MEDS: IV NS 0.9% 1,000 ML IV PRN ×2 (00:27→21:43)
[2018-01-08 04:00] VITALS: BP 92/55
--- NOTE | 2018-01-08 06:30 | NUR ---
TELE/TN NOTES PATIENT, AWAKE, ALERT X2, DISORIENTED, REQUIRING FREQUENT REORIENTATION, MONITORING AND ASSISTANCE, RESPIRATIONS EVEN AND UNLABORED. MONITORING FOR ANY CHANGES. BED IN LOCK POSITION, WILL ENDORSE TO AM RN FOR TONIO.
[2018-01-08 07:13] LABS: CALCIUM, SERUM 8.1 mg/dL (8.5-10.1); CARBON DIOXIDE 22 mmol/L (21-32); CHLORIDE 107 mmol/L (98-107); CREATININE 0.9 mg/dL (0.6-1.3); GLUCOSE 94 mg/dL (74-106); POTASSIUM 3.3 mmol/L (3.5-5.1); SODIUM SERUM 142 mmol/L (136-145); UREA NITROGEN, BLOOD 20 mg/dL (7-18)
[2018-01-08 08:00] VITALS: BP 118/85
[2018-01-08] MEDS: FLUTICASONE PROPIONATE 16 GM BOTTLE NS SCH (09:00)
--- NOTE | 2018-01-08 10:30 | NUR ---
UNEMPLOYMENT EXAMINER NOTE Patient medication administered via apple sauce patient refused to eat the entire apple sauce, half of apple sauce completed , UNEMPLOYMENT EXAMINER expressed / explained the importance of medication adherence patient remains confused further teaching needed. UNEMPLOYMENT EXAMINER will continue to assess patients needs .
[2018-01-08] MEDS: PANTOPRAZOLE 40 MG VIAL IV SCH ×2 (10:49→17:43)
[2018-01-08] MEDS: SUCRALFATE 1 G/10 ML UDC PO SCH ×4 (10:53→22:01)
[2018-01-08] MEDS: ENSURE ENLIVE 237 ML LIQUID (VANILLA) PO SCH ×3 (10:53→18:00)
[2018-01-08] MEDS: OLANZAPINE 2.5 MG TABLET PO SCH ×3 (10:54→22:00)
[2018-01-08] MEDS: ATORVASTATIN 40 MG TABLET PO SCH (10:54)
[2018-01-08] MEDS: MULTIPLE VIT (LYCOPENE/FA/MV,CA,IRON,MIN/LUT)1 TAB PO SCH (10:54)
[2018-01-08] MEDS: CHOLECALCIFEROL 1,000 UNIT TABLET (VIT D3) PO SCH (10:54)
[2018-01-08] MEDS: TAMSULOSIN 0.4 MG CAP.SR.24H PO SCH (10:54)
[2018-01-08] MEDS: AMLODIPINE BESYLATE 5 MG TABLET PO SCH (10:55)
[2018-01-08] MEDS: DULOXETINE HCL 30 MG CAPSULE.DR PO SCH (10:55)
[2018-01-08] MEDS: ASPIRIN 325 MG TABLET PO SCH (10:56)
[2018-01-08] MEDS: HALOPERIDOL LACTATE INJ 5 MG/ML VIAL IM PRN (10:59)
[2018-01-08] MEDS ORDERED: POTASSIUM CHLORIDE 20 MEQ POWDER PACKET PO SCH ×3 (11:00→18:00)
[2018-01-08 11:37] LABS: BASOPHILS % (AUTO) 0.1 % (0.0-2.0); EOSINOPHILS % (AUTO) 2.7 % (0.0-6.0); HEMATOCRIT 28 % (39-51); HEMOGLOBIN 9.4 g/dL (13.5-17.5); LYMPHOCYTES # (AUTO) 1.7 /CMM (0.8-4.8); LYMPHOCYTES % (AUTO) 15.1 % (20.0-44.0); MEAN CORPUSCULAR HGB CONC 33 g/dl (31.0-36.0); MEAN CORPUSCULAR VOLUME 82 fL (80-96); MONOCYTES # (AUTO) 1.2 /CMM (0.1-1.30); MONOCYTES % (AUTO) 10.8 % (2.0-12.0); NEUTROPHILS # (AUTO) 8.1 /CMM (1.8-8.9); NEUTROPHILS % (AUTO) 71.3 % (43.0-81.0); PLATELET COUNT (AUTO) 221 /CMM (150-450); RDW COEFFICIENT OF VARIATION 19.7 (11.5-15.0); RED BLOOD CELL COUNT(AUTO) 3.45 MIL/uL (4.5-6.0); WHITE BLOOD COUNT (AUTO) 11.3 K/uL (4.3-11.0)
[2018-01-08 12:00] VITALS: BP_SYST 101; BP_DIAS 60; BP_DIAS 61
[2018-01-08 16:00] VITALS: BP 142/90
[2018-01-08] MEDS: CEFTRIAXONE 1 G in IV NS 0.9% 50 ML IV SCH (19:50)
[2018-01-08 20:00] VITALS: BP 101/68
--- NOTE | 2018-01-08 20:31 | NUR ---
SAMPLE TESTER NOTE Medication not ordered for this time; given twice; K+ 3.2
[2018-01-09] VITALS: BP 144/85
[2018-01-09] MEDS: LORAZEPAM INJ 2 MG/ML VIAL IV PRN (03:02)
[2018-01-09 04:20] VITALS: BP 133/75
--- NOTE | 2018-01-09 06:00 | NUR ---
pt confused all night, remains bedrest but pt continue to get out of bed, gets agitated and upset and yell. pulled out monitor leads and doesn't follow instruction. had to give ativan and fall asleep.vss,afebrile, continue with iv fluids no bm just smaer of stool.restraint to wrist in place.sitter at all times.kept clean. all needs attended.
[2018-01-09 06:22] LABS: BASOPHILS % (AUTO) 0.4 % (0.0-2.0); EOSINOPHILS % (AUTO) 3.8 % (0.0-6.0); HEMATOCRIT 24 % (39-51); HEMOGLOBIN 7.8 g/dL (13.5-17.5); LYMPHOCYTES # (AUTO) 1.2 /CMM (0.8-4.8); LYMPHOCYTES % (AUTO) 15.9 % (20.0-44.0); MEAN CORPUSCULAR HGB CONC 33 g/dl (31.0-36.0); MEAN CORPUSCULAR VOLUME 82 fL (80-96); MONOCYTES # (AUTO) 0.7 /CMM (0.1-1.30); MONOCYTES % (AUTO) 9.5 % (2.0-12.0); NEUTROPHILS # (AUTO) 5.4 /CMM (1.8-8.9); NEUTROPHILS % (AUTO) 70.4 % (43.0-81.0); PLATELET COUNT (AUTO) 189 /CMM (150-450); RDW COEFFICIENT OF VARIATION 19.8 (11.5-15.0); RED BLOOD CELL COUNT(AUTO) 2.87 MIL/uL (4.5-6.0); WHITE BLOOD COUNT (AUTO) 7.6 K/uL (4.3-11.0)
[2018-01-09 07:05] LABS: CALCIUM, SERUM 7.9 mg/dL (8.5-10.1); CARBON DIOXIDE 22 mmol/L (21-32); CHLORIDE 111 mmol/L (98-107); CREATININE 0.7 mg/dL (0.6-1.3); GLUCOSE 104 mg/dL (74-106); POTASSIUM 3.6 mmol/L (3.5-5.1); SODIUM SERUM 143 mmol/L (136-145); UREA NITROGEN, BLOOD 18 mg/dL (7-18)
--- NOTE | 2018-01-09 07:18 | NUR ---
RN INITIAL NOTES: Rec'd pt asleep on bed, A/O x 1-2 w/ confusion, denies any pain/discomfort. On room air, no SOB. On telemonitor, SR w/ HR 84 bpm. Has JUAQUIN Midline, PL, w/ NS x 75 cc/hr, no s/sx of infection/infiltration noted. On bilateral soft wrist restraints d/t pulling out of lines. Has 1:1 sitter. Provided comfort & safety measures. Bed kept low & in locked pos. Call light placed w/in reach. Will continue to monitor & attend pt needs.
[2018-01-09] MEDS: SUCRALFATE 1 G/10 ML UDC PO SCH ×4 (07:59→21:52)
[2018-01-09 08:00] VITALS: BP 147/87
[2018-01-09] MEDS: DULOXETINE HCL 30 MG CAPSULE.DR PO SCH (08:35)
[2018-01-09] MEDS: ENSURE ENLIVE 237 ML LIQUID (VANILLA) PO SCH ×3 (08:35→17:45)
[2018-01-09] MEDS: MULTIPLE VIT (LYCOPENE/FA/MV,CA,IRON,MIN/LUT)1 TAB PO SCH (08:36)
[2018-01-09] MEDS: PANTOPRAZOLE 40 MG VIAL IV SCH ×2 (08:36→16:39)
[2018-01-09] MEDS: OLANZAPINE 2.5 MG TABLET PO SCH ×3 (08:36→20:55)
[2018-01-09] MEDS: ASPIRIN 325 MG TABLET PO SCH (08:36)
[2018-01-09] MEDS: TAMSULOSIN 0.4 MG CAP.SR.24H PO SCH (08:36)
[2018-01-09] MEDS: AMLODIPINE BESYLATE 5 MG TABLET PO SCH (08:36)
[2018-01-09] MEDS: CHOLECALCIFEROL 1,000 UNIT TABLET (VIT D3) PO SCH (08:36)
[2018-01-09] MEDS: ATORVASTATIN 40 MG TABLET PO SCH (08:40)
[2018-01-09] MEDS: FLUTICASONE PROPIONATE 16 GM BOTTLE NS SCH (08:40)
--- NOTE | 2018-01-09 11:30 | NUR ---
RN NOTES: Pt seen & examined by Dr. Clarke. Per MD, to inform her once pt is cleared by Dr. Watts.
--- NOTE | 2018-01-09 12:00 | NUR ---
RN NOTES: Called Dr. Watts re: consult, ordered to get consent for EGD, NPO post MN. MD to see pt later this PM. EGD sched samantha AM. EGD explained to the , consent signed & placed in the chart.
[2018-01-09] MEDS: IV NS 0.9% 1,000 ML IV PRN (12:07)
[2018-01-09] MEDS: DIVALPROEX SODIUM 125 MG TABLET.DR PO SCH ×2 (14:01→20:54)
[2018-01-09 16:00] VITALS: BP 125/72
[2018-01-09] MEDS: CEFTRIAXONE 1 G in IV NS 0.9% 50 ML IV SCH (17:45)
--- NOTE | 2018-01-09 18:57 | NUR ---
RN NOTES: Pt had episode of BM (black tarry stool) x2, small amount. Dr. Watts made aware & informed him too re: s/p EGD on 01/03/18. Awaiting response if he still wants to proceed w/ EGD procedure samantha WHITNEY.
--- NOTE | 2018-01-09 19:00 | NUR ---
RN CLOSING NOTES: No acute changes noted w/in shift. No SOB while on RA. JUAQUIN Midline, PL, w/ NS x 75 cc/hr, kept patent & intact w/ no s/sx of infection/infiltration noted. Pt still on bilateral soft wrist restraints d/t pulling out of lines. Has 1:1 sitter. Kept well rested. Needs attended. Bed kept low & in locked pos. Call light placed w/in reach. Endorsed to PM RN for TONIO & to ffup w/ Dr. Watts re: EGD.
[2018-01-09 20:00] VITALS: BP_SYST 112; BP_SYST 141; BP_DIAS 64; BP_DIAS 99
--- NOTE | 2018-01-09 23:15 | NUR ---
RN NOTES GAVE REPORT AND PATIENT TO GENARO BANKS
--- NOTE | 2018-01-09 23:20 | NUR ---
RN MS NOTES, RECEIVED PATIENT FROM JER LAM FOR CONTINUITY OF CARE.
[2018-01-10] VITALS: BP 139/99
[2018-01-10] MEDS: LORAZEPAM INJ 2 MG/ML VIAL IV PRN ×2 (01:30→12:18)
[2018-01-10 04:00] VITALS: BP_SYST 146; BP_SYST 160; BP_DIAS 112; BP_DIAS 80
[2018-01-10] MEDS: IV NS 0.9% 1,000 ML IV PRN (04:44)
[2018-01-10 06:25] LABS: BASOPHILS # (AUTO) 0.1 /CMM (0.0-0.2); BASOPHILS % (AUTO) 0.9 % (0.0-2.0); EOSINOPHILS % (AUTO) 6.6 % (0.0-6.0); HEMATOCRIT 26 % (39-51); HEMOGLOBIN 8.5 g/dL (13.5-17.5); LYMPHOCYTES # (AUTO) 1.7 /CMM (0.8-4.8); LYMPHOCYTES % (AUTO) 19.8 % (20.0-44.0); MEAN CORPUSCULAR HGB CONC 33 g/dl (31.0-36.0); MEAN CORPUSCULAR VOLUME 81 fL (80-96); MONOCYTES # (AUTO) 0.9 /CMM (0.1-1.30); MONOCYTES % (AUTO) 10.3 % (2.0-12.0); NEUTROPHILS # (AUTO) 5.3 /CMM (1.8-8.9); NEUTROPHILS % (AUTO) 62.4 % (43.0-81.0); PLATELET COUNT (AUTO) 229 /CMM (150-450); RDW COEFFICIENT OF VARIATION 19.6 (11.5-15.0); RED BLOOD CELL COUNT(AUTO) 3.14 MIL/uL (4.5-6.0); WHITE BLOOD COUNT (AUTO) 8.6 K/uL (4.3-11.0)
--- NOTE | 2018-01-10 06:35 | NUR ---
RN MS NOTES, PATIENT IN BED, SLEEPING AT THIS TIME, BREATHING EVEN AND UNLABORED, NO SOB/ACUTE DISTRESS NOTED, JUAQUIN MIDLINE INTACT AND PATENT, IVF INFUSING WELL AND PATIENT TOLERATING WELL, IN BILATERAL WRIST RESTRAINS, FREQUENT CHECKS FOR SKIN AND CIRCULATION PROVIDED, NO ABNORMALITY AT THIS TIME, BED LOCKED AND IN LOWEST POSITION, WILL HAVE EGD IN THE MORNING, NPO AFTER MIDNIGHT, DRY AND CLEAN AND WELL REPOSITIONED, WILL ENDORSE CONTINUITY OF CARE TO ONCOMING NURSE.
[2018-01-10 07:01] LABS: CARBON DIOXIDE 24 mmol/L (21-32); CHLORIDE 110 mmol/L (98-107); CREATININE 0.7 mg/dL (0.6-1.3); GLUCOSE 97 mg/dL (74-106); POTASSIUM 3.3 mmol/L (3.5-5.1); SODIUM SERUM 144 mmol/L (136-145); UREA NITROGEN, BLOOD 18 mg/dL (7-18)
[2018-01-10] MEDS ORDERED: ANESTHESIA TRAY IN PYXIS 1 EA TRAY MC ONE (07:30)
[2018-01-10] MEDS: SUCRALFATE 1 G/10 ML UDC PO SCH ×4 (07:30→21:50)
--- NOTE | 2018-01-10 07:39 | NUR ---
RN OPENING NOTES RECEIVED PATIENT IN BED RESTING,EASILY AROUSABLE DURING CARE A/OX2 WITH PERIODS OF CONFUSION. NO ACUTE DISTRESS, NO SOB, DENIED PAIN OR DISCOMFORT AT THIS TIME. IV SITE INTACT AND PATENT, NO REDNESS OR INFILTRATION NOTED. PATIENT WITH SITTER AT BEDSIDE,KEPT PATIENT CLEAN, SAFE AND COMFORTABLE. BED IN LOW/LOCKED POSITION, SIDERAILS UPX2, CALL LIGHT IN REACH. WILL CONTINUE TO MONITOR PT TO HAVE EGD THIS AM
[2018-01-10 08:00] VITALS: BP 19/98
[2018-01-10] MEDS: OLANZAPINE 2.5 MG TABLET PO SCH ×3 (08:00→20:49)
[2018-01-10] MEDS: ENSURE ENLIVE 237 ML LIQUID (VANILLA) PO SCH ×3 (08:00→16:49)
[2018-01-10] MEDS: MULTIPLE VIT (LYCOPENE/FA/MV,CA,IRON,MIN/LUT)1 TAB PO SCH (08:07)
[2018-01-10] MEDS: DIVALPROEX SODIUM 125 MG TABLET.DR PO SCH ×2 (08:07→20:49)
[2018-01-10] MEDS: FLUTICASONE PROPIONATE 16 GM BOTTLE NS SCH (08:07)
[2018-01-10] MEDS: TAMSULOSIN 0.4 MG CAP.SR.24H PO SCH (08:07)
[2018-01-10] MEDS: ASPIRIN 325 MG TABLET PO SCH (08:07)
[2018-01-10] MEDS: AMLODIPINE BESYLATE 5 MG TABLET PO SCH (08:08)
[2018-01-10] MEDS: ATORVASTATIN 40 MG TABLET PO SCH (08:08)
[2018-01-10] MEDS: CHOLECALCIFEROL 1,000 UNIT TABLET (VIT D3) PO SCH (08:08)
[2018-01-10] MEDS: PANTOPRAZOLE 40 MG VIAL IV SCH ×2 (08:51→16:50)
--- NOTE | 2018-01-10 11:30 | NUR ---
RN FOLLOW UP NOTES CALLED DR. HOLLAND, TO FOLLOW UP ON NPO STATUS PT RETURNED FROM OR AND EGD WAS CANCELLED NO ANSWER WILL CONTINUE TO FOLLOW UP
[2018-01-10 12:00] VITALS: BP_SYST 143; BP_DIAS 54; BP_DIAS 84
[2018-01-10] MEDS ORDERED: POTASSIUM CHLORIDE 20 MEQ TAB.PRT.SR PO SCH (14:00)
--- NOTE | 2018-01-10 15:30 | NUR ---
RN FOLLOW UP NOTES CALLED OTILIO LEYVA, TO FOLLOW UP ON NPO STATUS PT RETURNED FROM OR AND EGD WAS CANCELLED NO ANSWER WILL CONTINUE TO FOLLOW UP
[2018-01-10 16:00] VITALS: BP 143/84
--- NOTE | 2018-01-10 16:36 | NUR ---
RN NOTES PER VIRTUAL OFFICE ASSISTANT MAY RESUME MEDS AND DIET
[2018-01-10] MEDS: POTASSIUM CL. PREMIX PERIPHER. 50 ML IV SCH ×2 (16:50→17:43)
[2018-01-10] MEDS: CEFTRIAXONE 1 G in IV NS 0.9% 50 ML IV SCH (17:06)
--- NOTE | 2018-01-10 18:45 | NUR ---
RN NOTES RECEIVED CALL FROM SON SHAYLA, PER SON HE IS THE DPOA AND DOESNT WANT PT TO BE SENT TO PSYCH FACILITY UPON DISCHARGE OR HAVE PSYCH MEDS "SEDATIVES ARE OKAY" NO DPOA NOTED IN CHART, RELAYED TO CHARGE NURSE AND CALLED CASE MANAGEMENT WITH NO ANSWER, WILL ENDORSE TO NEXT SHIFT FOR CONTINUITY OF CARE AND FOLLOW UP
--- NOTE | 2018-01-10 19:42 | NUR ---
RN CLOSING NOTES PATIENT IN BED RESTING,EASILY AROUSABLE DURING CARE A/OX2 WITH PERIODS OF CONFUSION. NO ACUTE DISTRESS, NO SOB, DENIED PAIN OR DISCOMFORT AT THIS TIME. IV SITE INTACT AND PATENT, NO REDNESS OR INFILTRATION NOTED. PATIENT WITH SITTER AT BEDSIDE,KEPT PATIENT CLEAN, SAFE AND COMFORTABLE. NO ACUTE CHANGE IN CONDITION THROUGHOUT SHIFT, BED IN LOW/LOCKED POSITION, SIDERAILS UPX2, CALL LIGHT IN REACH. ENDORSED TO NEXT SHIFT FOR CONTINUITY OF CARE, ENDORSED TO NEXT SHIFT FOR FOLLOW UP OF GI MD
[2018-01-10 20:00] VITALS: BP 168/99
--- NOTE | 2018-01-10 20:00 | NUR ---
PHILIP RN NOTES RECEIVED BEDSIDE REPORT FROM AM NURSE. PATIENT IN BED RESTING,ON RESTRAINT, A/OX2 WITH PERIODS OF CONFUSION. NO ACUTE DISTRESS, NO SOB, DENIED PAIN OR DISCOMFORT AT THIS TIME. V/S WNL WITH PERFUSION OF 99% RA. JUAQUIN MIDLINE IV SITE NOTED, INTACT AND PATENT, NO REDNESS OR INFILTRATION. PATIENT WITH SITTER AT BEDSIDE, SAFE AND COMFORTABLE. BED IN LOW/LOCKED POSITION, SIDE RAILS UPX2, CALL LIGHT WITHIN REACH. WILL CONT. TO MONITOR.
[2018-01-11] MEDS: IV NS 0.9% 1,000 ML IV PRN (01:44)
[2018-01-11] MEDS: ZOLPIDEM TARTRATE 5 MG TABLET PO PRN (01:54)
[2018-01-11 04:00] VITALS: BP 155/85
[2018-01-11 06:56] LABS: BASOPHILS % (AUTO) 0.4 % (0.0-2.0); EOSINOPHILS % (AUTO) 3.2 % (0.0-6.0); HEMATOCRIT 28 % (39-51); HEMOGLOBIN 9.4 g/dL (13.5-17.5); LYMPHOCYTES # (AUTO) 1.4 /CMM (0.8-4.8); LYMPHOCYTES % (AUTO) 12.7 % (20.0-44.0); MEAN CORPUSCULAR HGB CONC 33 g/dl (31.0-36.0); MEAN CORPUSCULAR VOLUME 82 fL (80-96); MONOCYTES # (AUTO) 1.2 /CMM (0.1-1.30); MONOCYTES % (AUTO) 10.9 % (2.0-12.0); NEUTROPHILS # (AUTO) 7.9 /CMM (1.8-8.9); NEUTROPHILS % (AUTO) 72.8 % (43.0-81.0); PLATELET COUNT (AUTO) 232 /CMM (150-450); RDW COEFFICIENT OF VARIATION 20.1 (11.5-15.0); RED BLOOD CELL COUNT(AUTO) 3.48 MIL/uL (4.5-6.0); WHITE BLOOD COUNT (AUTO) 10.9 K/uL (4.3-11.0)
[2018-01-11 07:14] LABS: CALCIUM, SERUM 8.5 mg/dL (8.5-10.1); CARBON DIOXIDE 23 mmol/L (21-32); CHLORIDE 109 mmol/L (98-107); CREATININE 0.9 mg/dL (0.6-1.3); GLUCOSE 119 mg/dL (74-106); MAGNESIUM 1.8 mg/dL (1.8-2.4); PHOSPHORUS 3.9 mg/dL (2.5-4.9); POTASSIUM 3.4 mmol/L (3.5-5.1); SODIUM SERUM 143 mmol/L (136-145); UREA NITROGEN, BLOOD 20 mg/dL (7-18)
--- NOTE | 2018-01-11 07:45 | NUR ---
RN NOTE RECEIVED PATIENT IN BED AWAKE, ALERT AND ORIENTED X2WITH EPISODES OF CONFUSION. BREATHING EVEN AND UNLABORED WITH NO DISTRESS NOTED. PATIENT WITH BILATERAL SOFT WRIST RESTRAINTS, WILL REMOVE AND CHECK CIRALTION Q2H. DENIED PAIN OR DISCOMFORT AT THIS TIME. RIGHT UA MIDLINE IV SITE INTACT AND PATENT. PATIENT WITH SITTER AT BEDSIDE, SAFE AND COMFORTABLE. BED IN LOW, LOCKED POSITION, PLACED CALL LIGHT WITHIN REACH. WILL CONTINUE TO MONITOR.
[2018-01-11] MEDS: PANTOPRAZOLE 40 MG VIAL IV SCH (08:07)
[2018-01-11] MEDS: SUCRALFATE 1 G/10 ML UDC PO SCH ×2 (08:07→12:17)
[2018-01-11] MEDS: ASPIRIN 325 MG TABLET PO SCH (08:08)
[2018-01-11] MEDS: OLANZAPINE 2.5 MG TABLET PO SCH ×2 (08:08→13:04)
[2018-01-11] MEDS: CHOLECALCIFEROL 1,000 UNIT TABLET (VIT D3) PO SCH (08:09)
[2018-01-11] MEDS: DIVALPROEX SODIUM 125 MG TABLET.DR PO SCH (08:09)
[2018-01-11] MEDS: AMLODIPINE BESYLATE 5 MG TABLET PO SCH (08:09)
[2018-01-11] MEDS: MULTIPLE VIT (LYCOPENE/FA/MV,CA,IRON,MIN/LUT)1 TAB PO SCH (08:10)
[2018-01-11] MEDS: ATORVASTATIN 40 MG TABLET PO SCH (08:10)
[2018-01-11] MEDS: TAMSULOSIN 0.4 MG CAP.SR.24H PO SCH (08:10)
[2018-01-11] MEDS: ENSURE ENLIVE 237 ML LIQUID (VANILLA) PO SCH ×2 (08:11→12:18)
[2018-01-11] MEDS ORDERED: ERGOCALCIFEROL (VITAMIN D 2) 50,000 UNIT CAPSULE PO SCH (09:00)
[2018-01-11] MEDS: FLUTICASONE PROPIONATE 16 GM BOTTLE NS SCH (09:51)
[2018-01-11] MEDS ORDERED: POTASSIUM CHLORIDE 20 MEQ POWDER PACKET NG SCH (10:00)
[2018-01-11] MEDS ORDERED: PANT40VI IV (10:28)
[2018-01-11] MEDS ORDERED: SUCR1ORA6 PO (10:28)
[2018-01-11] MEDS ORDERED: DIVA125T2 PO (10:28)
[2018-01-11] MEDS ORDERED: OLAN2.5T3 PO (10:28)
[2018-01-11] MEDS ORDERED: LACT-246 PO (10:28)
[2018-01-11 12:00] VITALS: BP 126/85
--- NOTE | 2018-01-11 16:10 | NUR ---
RN NOTE 82 YEAR OLD MALE DISCHARGED TO [facility] LIVING IN STABLE CONDITION. COMPLIANT WITH MEDICATIONS, COOPERATIVE WITH TREATMENT PLANS. TREATMENT PLANS AND MEDICAL PLANS DEFERRED FOR CONTINUAL MONITORING. EDUCATED PATIENT ABOUT AFTER CARE PLAN AND COPIES PROVIDED RETURNED PERSONAL BELONGINGS TO PATIENT. MEDICATIONS RECONCILED. REPORT GIVEN TO COMMUNITY RELATIONS FROM [facility] FOR CONTINUITY OF CARE. PATIENT UNABLE TO SIGN PAPERWORK BUT WAS ABLE TO GET SECONDARY RN TO CO SIGN. WOUND PICTURES TAKEN AND DOCUMENTED IN CHART. REMOVED RIGHT UPPER MIDLINE, CATH INTACT. PATIENT LEFT THE UNIT AT 1610 VIA [facility] PRIVATE TRANSPORTATION.
== END 2018-01-11 16:15 | disposition home health service (06) | DRG 377 ==
LOC: ER 13:28 → TELE-TD 16:57 → TELE1 01-05 16:45 → MEDSG1 01-09 10:50
PROVIDERS: ADMIT Hospitalist; ATTEND Hospitalist
PROC: 30233N1 Transfusion of Nonautologous Red Blood Cells into Peripheral Vein, Percutaneous Approach (ICD-10-PCS; principal; 2018-01-02)
PROC: 0W3P8ZZ Control Bleeding in Gastrointestinal Tract, Via Natural or Artificial Opening Endoscopic (ICD-10-PCS; 2018-01-03)
PROC: 3E0G8GC Introduction of Other Therapeutic Substance into Upper GI, Via Natural or Artificial Opening Endoscopic (ICD-10-PCS; 2018-01-03)
PROC: 0D598ZZ Destruction of Duodenum, Via Natural or Artificial Opening Endoscopic (ICD-10-PCS; 2018-01-03)
PROC: 0DB68ZX Excision of Stomach, Via Natural or Artificial Opening Endoscopic, Diagnostic (ICD-10-PCS; 2018-01-03)
PROC: 05H533Z Insertion of Infusion Device into Right Subclavian Vein, Percutaneous Approach (ICD-10-PCS; 2018-01-03)
PROC: B546ZZA Ultrasonography of Right Subclavian Vein, Guidance (ICD-10-PCS; 2018-01-03)
DX: K26.0 Acute duodenal ulcer with hemorrhage (principal); G93.41 Metabolic encephalopathy; E44.0 Moderate protein-calorie malnutrition; F05 Delirium due to known physiological condition; D62 Acute posthemorrhagic anemia; E87.1 Hypo-osmolality and hyponatremia; M48.56XA Collapsed vertebra, not elsewhere classified, lumbar region, initial encounter for fracture; N39.0 Urinary tract infection, site not specified; K57.30 Diverticulosis of large intestine without perforation or abscess without bleeding; D72.829 Elevated white blood cell count, unspecified; E78.5 Hyperlipidemia, unspecified; F32.9 Major depressive disorder, single episode, unspecified; I10 Essential (primary) hypertension; Z79.82 Long term (current) use of aspirin; Z79.899 Other long term (current) drug therapy; E87.6 Hypokalemia; F03.90 Unspecified dementia, unspecified severity, without behavioral disturbance, psychotic disturbance, mood disturbance, and anxiety; G89.29 Other chronic pain; H04.123 Dry eye syndrome of bilateral lacrimal glands; N40.0 Benign prostatic hyperplasia without lower urinary tract symptoms; I51.7 Cardiomegaly; R04.0 Epistaxis; I71.2 Thoracic aortic aneurysm, without rupture; I72.3 Aneurysm of iliac artery; I70.8 Atherosclerosis of other arteries; I71.4 Abdominal aortic aneurysm, without rupture; Z98.890 Other specified postprocedural states; K29.01 Acute gastritis with bleeding
CPT/HCPCS: 36415; 36569; 71045-TC; 80048-TC; 80053-TC; 80061-TC; 80076-TC; 81000-TC; 82746; 82962-TC; 83540-TC; 83735-TC; 84100-TC; 84443-TC; 85025-TC; 85027-TC; 85730-TC; 86850-TC; 86921-TC; 87040-TC; 87081-TC; 88305-TC; 88313-TC; 88342; 92526; 92611-TC; 97116-TC; 97530-TC; A4216; A4606; C9113; J0696; J1630; J1815; J1940; J2060; J2250; J2405; J2704; J3480; J3490; J7030; J7040; J7050; P9016-BL; Q9967; Z7610